=== PATIENT | female | born 1955 | race Two or more races ===

== ENCOUNTER 2021-01-08 10:09 | Emergency (ER) | payer BC, MEDICAID ==
[~2021-01-08] VITALS: Ht 162.6 cm; Wt 103.4 kg
[~2021-01-08 10:09] MED LIST: HYDR-2214 PO; IBUP-1902 PO; PENI500T PO
[2021-01-08] MEDS ORDERED: ONDANSETRON ODT 4 MG ONE (10:40)
--- NOTE | 2021-01-08 10:43 | NUR ---
ZOFRAN ODT GIVEN PER PROTOCOL FOR NAUSEA. PT STATES NOT SURE IF HEAD INJURY OR ETOH CAUSING NAUSEA. +VIDAL, NAUSEA, DIZZINESS. SCALP WOUND FROM FALL/INJURY. REDNESS TO R ARM BUT PT DENIES PAIN TO R ARM.
[2021-01-08] MEDS ORDERED: ACETAMINOPHEN 500 MG TABLET ONE (10:59)
[2021-01-08] MEDS ORDERED: ACETAMINOPHEN 500 MG TABLET PO ONE (11:00)
[2021-01-08] MEDS ORDERED: ONDANSETRON ODT 4 MG PO ONE (11:00)
[2021-01-08 12:08] VITALS: BP 178/86
--- NOTE | 2021-01-08 12:09 | NUR ---
PT WITHOUT VOMITING DURING ER STAY. PT DENIES NAUSEA AND PAIN DECREASED AT TIME OF DISCHARGE. PT AMBULATORY TO DC DESK WITH DAUGHTER.
== END 2021-01-08 12:11 | disposition home or self-care (01) ==
LOC: ED 12:00
DX: S00.93XA Contusion of unspecified part of head, initial encounter (principal); S30.0XXA Contusion of lower back and pelvis, initial encounter; R11.2 Nausea with vomiting, unspecified; E11.9 Type 2 diabetes mellitus without complications; W01.0XXA Fall on same level from slipping, tripping and stumbling without subsequent striking against object, initial encounter; Y93.89 Activity, other specified; Y92.009 Unspecified place in unspecified non-institutional (private) residence as the place of occurrence of the external cause; Y99.8 Other external cause status
CPT/HCPCS: 70450; 99284